=== PATIENT | female | born 1980 | race Caucasian/White ===

== ENCOUNTER 2017-01-08 09:55 | Inpatient (IN) | payer BC ==
[2017-01-08] VITALS (20 sets, daily range): BP systolic 105–132; BP diastolic 55–88; PULSE 56–98; RESP 9–18; Ht 152.4 cm; Wt 64.1 kg
[~2017-01-08] VITALS: Ht 152.4 cm; Wt 64.1 kg
[2017-01-08] MEDS ORDERED: CEFAZOLIN 2 GM/50 ML (PMX) 50 ML IVPB SCH (10:00)
[2017-01-08] MEDS ORDERED: D5-NS + KCL 20 MEQ 1,000 ML IV SCH (10:00)
[2017-01-08] MEDS ORDERED: Metronidazole 500 MG in NS 100 ML IVPB SCH (10:00)
[2017-01-08] MEDS ORDERED: MIDAZOLAM 1 MG/ML 2 ML INJ ONE (10:31)
[2017-01-08] MEDS ORDERED: FENTAnyl 50 MCG/ML VIAL ONE (10:31)
[2017-01-08] MEDS ORDERED: SUCCINYLCHOLINE CHLORIDE 100 MG/5 ML SYG IV ONE (10:31)
[2017-01-08] MEDS ORDERED: LIDOCAINE 2% (SDV) 5 ML INJ ONE (10:31)
[2017-01-08] MEDS ORDERED: PROPOFOL 20 ML ONE (10:31)
[2017-01-08] MEDS ORDERED: morphine SULFATE/PF (10 MG/10 ML) INJ ONE (12:34)
[2017-01-08] MEDS ORDERED: CEFAZOLIN 1 GM INJ ONE (13:44)
[2017-01-08] MEDS ORDERED: ROCURONIUM 50 MG INJ ONE (13:44)
[2017-01-08] MEDS ORDERED: METOCLOPRAMIDE 10 MG INJ ONE (13:45)
[2017-01-08] MEDS ORDERED: DEXAMETHASONE 4 MG/ML 1 ML INJ ONE (13:45)
[2017-01-08] MEDS ORDERED: ONDANSETRON 4 MG INJ ONE (13:45)
[2017-01-08] MEDS ORDERED: FAMOTIDINE 20 MG INJ ONE (13:45)
[2017-01-08] MEDS ORDERED: EPHEDrine SULFATE 50 MG/5 ML SYG ONE (13:57)
[2017-01-08] MEDS ORDERED: HYDROmorphONE (0.2 MG/ML) 10ML SYG IV PRN ×2 (15:00)
[2017-01-08] MEDS ORDERED: NALOXONE (0.4 MG/ML) INJ IV PRN (15:00)
[2017-01-08] MEDS ORDERED: MEPERIDINE 25 MG INJ IV PRN (15:00)
[2017-01-08] MEDS ORDERED: TRIMETHOBENZAMIDE 100 MG/ML VIAL IM PRN (15:00)
[2017-01-08] MEDS ORDERED: FENTAnyl 50 MCG/ML VIAL IV PRN (15:00)
[2017-01-08] MEDS ORDERED: NALBUPHINE HCL (10 MG/1 ML) INJ IV PRN (15:00)
[2017-01-08] MEDS ORDERED: KETOROLAC 30 MG INJ IV PRN (15:00)
[2017-01-08] MEDS ORDERED: DIPHENHYDRAMINE 50 MG INJ IV PRN ×2 (15:00)
[2017-01-08] MEDS ORDERED: HYDROmorphONE 1 MG/ML SYG IV PRN ×2 (15:00)
[2017-01-08] MEDS ORDERED: ONDANSETRON 4 MG INJ IV PRN ×2 (15:00)
[2017-01-08] MEDS ORDERED: HYDROCODONE/APAP (5/325) TAB PO PRN (15:00)
[2017-01-08] MEDS ORDERED: PROCHLORPERAZINE 10 MG INJ IV PRN (15:00)
[2017-01-08] MEDS ORDERED: GLYCOPYRROLATE 0.4 MG INJ ONE (15:04)
[2017-01-08] MEDS ORDERED: NEOSTIGMINE 3 MG/3 ML SYRINGE ONE (15:04)
[2017-01-08] MEDS: CEFAZOLIN 1 GM/50 ML (PMX) 50 ML IVPB SCH ×2 (17:09→23:30)
[2017-01-08] MEDS: D5-LR + KCL 20 MEQ 1,000 ML IV SCH (17:10)
[2017-01-08] MEDS ORDERED: morphine 2 MG INJ IV PRN (17:30)
[2017-01-09] VITALS: BP 115/73; RESP 18
[2017-01-09] MEDS: D5-LR + KCL 20 MEQ 1,000 ML IV SCH (03:25)
[2017-01-09] MEDS ORDERED: D5-LR + KCL 20 MEQ 1,000 ML IV SCH (04:00)
[2017-01-09 05:30] LABS: ADD SCAN DIFF NO
[2017-01-09 05:48] LABS: BASOPHILS % 0.3 % (0.0-2.0); HEMATOCRIT 36.4 % (37.0-47.0); HEMOGLOBIN 11.5 g/dl (12.0-16.0); LYMPHOCYTES # 1.3 10^3/ul (0.8-2.9); LYMPHOCYTES % 11.2 % (15.0-51.0); MEAN CORPUSCULAR HEMOGLOBIN 26.8 pg (29.0-33.0); MEAN CORPUSCULAR HGB CONC 31.6 g/dl (32.0-37.0); MEAN CORPUSCULAR VOLUME 84.8 fl (82.0-101.0); MEAN PLATELET VOLUME 10.6 fl (7.4-10.4); MONOCYTE # 0.6 10^3/ul (0.3-0.9); MONOCYTES % 4.8 % (0.0-11.0); NEUTROPHIL # 9.7 10^3/ul (1.6-7.5); NEUTROPHILS % 83.3 % (39.0-77.0); PLATELET COUNT 321 10^3/UL (140-415); RED BLOOD COUNT 4.29 10^6/ul (4.20-5.40); RED CELL DISTRIBUTION WIDTH 15.2 % (11.5-14.5); WHITE BLOOD COUNT 11.7 10^3/ul (4.8-10.8)
[2017-01-09 06:00] LABS: POTASSIUM 4.4 mmol/L (3.5-5.1)
[2017-01-09 06:03] LABS: CREATININE 0.68 mg/dl (0.44-1.00)
[2017-01-09 06:04] LABS: CALCIUM 8.9 mg/dl (8.4-10.2)
[2017-01-09 07:53] VITALS: BP 105/65; RESP 15
[2017-01-09] MEDS: CEFAZOLIN 1 GM/50 ML (PMX) 50 ML IVPB SCH (08:20)
[2017-01-09 12:00] VITALS: BP 118/68; PULSE 70; RESP 17
[2017-01-09] MEDS ORDERED: ONDANSETRON 4 MG INJ IV PRN (13:11)
[2017-01-09] MEDS ORDERED: traMADol 50 MG TAB PO PRN (13:11)
--- NOTE | 2017-01-09 21:59 | OPR ---
Date/Time of Note Date/Time of Note DATE: 01/09/17 TIME: 21:58 Operative Report Free Text/Dictation 2 OPERATIVE REPORT [facility] Name: Irish Grossman Date: 01/18/17 Preoperative Diagnosis: 1- Adnexal mass 2- Pelvic pain Postoperative Diagnosis: Procedures: 1- Bilateral laparoscopic salpingectomy 2- Excision left ovarian neoplasm Surgeon: Dr. Hopper Hanger Off: Dr. 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 She was taken to the operating room to undertake a laparoscopic right and possible bilateral salpingectomy with possible USO or BSO and staging if needed after considering all options with risks and benefits. Findings and Summary After laparoscopic placement a right paratubal cyst with evidence of a TL was noted and so a salpingectomy was completed. Contralaterally, a similar procedure was completed and a 2 cm firm ovarian lesion was excised with the base cauterized and a fibroma on frozen section. Name: Irish Grossman Procedure: After being prepped and draped in the usual manner a sponge stick was placed in the vagina. Subsequently, we placed a 5 mm trocar cephlad to the umbilicus without incident and insufflated to 15 mm Hg, after which we and placed two 5 millimeter trocars laterally and a 12 millimeter trocar suprapubically. At this time any pelvic adhesions were lysed with sharp dissection and the Omni as needed. Subsequently we explored and noted that a TL was previously done bilaterally and there was a 2 cm irregular solid mass on the left ovary. Hence , on the right side where aparatubal cyst with evidence of a TL was noted a salpingectomy was completed with traction and the Omni as well as Thunderbeat and the specimen removed. Contralaterally, a similar procedure was completed of the previously transected fallopian tube with the Thunderbeat and Omni, after which the aforementioned 2 cm firm ovarian lesion was excised at the base with the Thunderbeat and the base cauterized with the Omni and a fibroma on frozen section was confirmed. After irrigating and assuring hemostasis the 12 millimeter trocar was removed and the fascia was closed with 0-vicryl using an endo-close devise. The gas was removed and the skin of all sites then closed with 3-0 Vicryl suture and 4-0 Plain Gut for the 12-millimeter trocar site and 4-0 Plain Gut for the other sites. The EBL was 25 ml and the patient tolerated the procedure well and left the OR in good condition. Craig Hopper M.D. CRAIG HOPPER MD Jan 09, 2017 21:59
== END 2017-01-09 18:50 | disposition home or self-care (01) | DRG 743 ==
LOC: SDS 09:55 → EDSTATUS 12:00 → MS1 15:41 → SDS 15:41 → MS1 16:45
PROC: 0UB14ZZ Excision of Left Ovary, Percutaneous Endoscopic Approach (ICD-10-PCS; 2017-01-08)
PROC: 0UT74ZZ Resection of Bilateral Fallopian Tubes, Percutaneous Endoscopic Approach (ICD-10-PCS; principal; 2017-01-08 12:00)
DX: N83.8 Other noninflammatory disorders of ovary, fallopian tube and broad ligament (principal); D49.59 Neoplasm of unspecified behavior of other genitourinary organ; N70.11 Chronic salpingitis
CPT/HCPCS: 80048; 84703; 85025; 86850; 86900; 86901; 86920; 87086; 88305; 88307; 88331; J0330; J0690; J1100; J1885; J2250; J2274; J2405; J2710; J2765; J3010; J3480